=== PATIENT | male | born 1940 | race Caucasian/White ===

== ENCOUNTER 2016-04-14 12:24 | Inpatient (IN) | payer BC, MEDICARE ==
--- NOTE | ~2016-04-14 | HP ---
History And Physical [facility] [address] [place]. [address] NAME: WAQAS HALL : 39 STATUS : ADM IN PAT#: [id number] AGE: 76 ADM/REG DATE : 04/14/16 MR#: [id number] REPORT SERV DATE: 04/14/16 DICTATED BY: SUZAN ALVES DATE: 04/14/16 REPORT STATUS : Draft TRANSCRIBED BY: MODHossein DATE: 04/14/16 DATE OF ADMISSION: 04/14/2016 CHIEF COMPLAINT: Shortness of breath and excessive sleepiness. HISTORY OF PRESENT ILLNESS: This is a 76-year-old male with medical history significant for chronic hypoxic/hypercapnic respiratory failure, obesity hypoventilation syndrome, obstructive sleep apnea, noncompliant with CPAP, morbid obesity, chronic bilateral lower extremity lymphedema, who was brought to the emergency room department of [facility] here at [place] by his with complaints of excessive daytime sleepiness. It was noted that the patient was in his usual state of health, ambulating with the family, shopping, and going out for grocery shopping with family until the day of presentation. When the patient woke up this morning on presentation, was noted to be non-easily arousable. The patient continued to be excessively sleepy, he continued to feel drowsy, and he was noticed to be having some troubles with shortness of breath. It was also noted that the patient has been noncompliant with the CPAP machine in the last few days. The patient's also reported that the patient may have had a low-grade fever at home with some chills, but the temperature was not measured at home. No associated cough. No wheezing. No orthopnea. No PND. No bilateral lower extremity swelling. No history of contact with any person with chronic cough or flu-like symptoms. At the time of my H and P, the patient was extremely solemnic. The above history was provided by his . In the ER, the patient was noted to have a low-grade temperature of 100.8, pH was 7.43, pCO2 was elevated at 49, pO2 at 60. Also noted that in the ER, the patient had a chest x-ray that shows a possible left lower lobe infiltrate concerning for possible pneumonia. The Hospitalist Service was contacted to admit the patient for further management. PAST MEDICAL HISTORY: 1. History of hypoxic/hypercapnic respiratory failure. 2. Obstructive sleep apnea. 3. COPD. 4. Cor pulmonale. 5. Diastolic heart failure with preserved EF. 6. Morbid obesity. 7. Atrial fibrillation. REVIEW OF SYSTEMS: I was unable to obtain review of systems from this patient as he was very drowsy and solemnic throughout my interview. Rest of the history was obtained by chart review and also from his . FAMILY HISTORY: No history of diabetes, hypertension, or CVA in the family. ALLERGIES: NO KNOWN DRUG ALLERGIES. History And Physical [address] [place]. [address] NAME: WAQAS HALL : 39 STATUS : ADM IN [facility]#: [id number] AGE: 76 ADM/REG DATE : 04/14/16 MR#: [id number] REPORT SERV DATE: 04/14/16 DICTATED BY: SUZAN ALVSE DATE: 04/14/16 REPORT STATUS : Draft TRANSCRIBED BY: JAYDEN DATE: 04/14/16 SOCIAL HISTORY: This patient is a former smoker, but currently has quit smoking several years ago. He currently lives with his . He denies drinking alcohol or illicit drug use. PAST SURGICAL HISTORY: 1. Left leg I and D and wound VAC placement. 2. Lip cancer resection. HOME MEDICATIONS: 1. Spiriva inhaler 1 cap at bedtime. 2. Formoterol fumarate inhaler 20 mcg/2 mL one each twice a day. 3. Pulmicort 0.5 one each b.i.d. 4. Warfarin 10 mg tablet p.o. at bedtime. 5. Primidone 50 mg two pills twice a day. 6. Magnesium oxide at bedtime. 7. Diltiazem 60 mg tablet p.o. daily. 8. Potassium chloride 20 mEq p.o. daily. 9. Omeprazole 40 mg p.o. daily. 10.Multivitamins 1 tablet p.o. daily. 11.Torsemide 20 mg two pills p.o. daily. 12.Roflumilast 50 mcg p.o. daily. PHYSICAL EXAMINATION: VITAL SIGNS: Blood pressure 136/75 mmHg, temperature 100.2, pulse 109 beats per minute, respiratory rate 20, and saturating 95% on 4 L of oxygen. GENERAL: Very solemnic but arousable. HEENT: Extraocular muscles intact. Pupils are equal, round, and reactive to both light and accommodation. NECK: Supple. CHEST: Equal expansion bilaterally. No area of tenderness. LUNGS: Bilateral reduced air entry at the lower lung lowe. HEART: S1, S2. Irregularly irregular rhythm. No murmurs. ABDOMEN: Bowel sounds normoactive, obese, and nontender. No palpably enlarged organomegaly. EXTREMITIES: Lower extremities; no lower extremity edema. Area of venous stasis noted. LABORATORY DATA: Chemistry: Procalcitonin 0.19. Sodium 135, potassium 4.3, chloride 94, bicarb 35, BUN 21, creatinine 1.13, GFR 72, glucose 123, calcium 9.0. Hematology: WBC 6.0, hemoglobin 12.1, hematocrit 38.3, platelets 153. BNP 109.2. Chest x-ray, impression: Cardiomegaly, questionable some infiltrate of fluid in the left costophrenic angle. Urinalysis negative. Blood cultures taken. Sputum cultures pending. SUMMARY: This is a 76-year-old male with medical history significant for chronic respiratory failure type 2, obstructive sleep apnea, noncompliant with CPAP, who presented History And Physical [address] [address] NAME: WAQAS HALL : 39 STATUS : ADM IN [facility]#: [id number] AGE: 76 ADM/REG DATE : 04/14/16 MR#: [id number] REPORT SERV DATE: 04/14/16 DICTATED BY: SUZAN ALVES DATE: 04/14/16 REPORT STATUS : Draft TRANSCRIBED BY: JAYDEN DATE: 04/14/16 to the hospital with complaints of excessive solemnness as well as shortness of breath, was found to have a low-grade temperature of 100.2 and an elevated pCO2 concerning for CO2 narcosis secondary to acute on chronic hypercapnic respiratory failure as well as a possible pneumonia. ASSESSMENT AND PLAN: 1. Hypercapnic/hypoxic respiratory failure, acute on chronic, with elevated CO2. The patient's excessive daytime sleepiness likely related to CO2 narcosis. At this point, I will start the patient on BiPAP trial, repeat ABG, and perform neuro checks. 2. Pneumonia. The patient's chest x-ray has some possible infiltrates on the left lower lung field. Also has a fever of 100.2, although white blood cell is within normal limits, Procalcitonin is within normal limits, we will obtain blood cultures and sputum culture. We will start the patient on empiric antibiotics with ceftriaxone and azithromycin at this time and continue to monitor. If the patient's oxygen requirement improves without any further need, then I will be comfortable escalating antibiotics at that time. 3. Obesity hypoventilation syndrome. We will start the patient on BiPAP at this time and continue to monitor. 4. Diastolic heart failure with preserved EF. The patient appears euvolemic at this time. No evidence of volume overload. We will continue the patient's home dose p.o. diuretics as well as home dose cardiac medications. 5. Code status. The patient is full code per 's wishes. 6. The patient will be admitted to the cardiac tele monitoring unit given worsening respiratory status. The patient has been placed on BiPAP. IOO/MODL Suzan Alves MD / [id number] CC: Girish Alejandra D.O.
--- NOTE | ~2016-04-14 | DS ---
Discharge Summary [address] [address] NAME: WAQAS HALL : 39 STATUS : DIS IN PAT#: [id number] AGE: 76 ADM/REG DATE : 04/14/16 MR#: [id number] REPORT SERV DATE: 04/18/16 DICTATED BY: HAMLET HOPSON DATE: 04/17/16 REPORT STATUS : Draft TRANSCRIBED BY: MODL DATE: 04/17/16 ADMISSION DATE: 04/14/2016 DISCHARGE DATE: 04/17/2016 DISCHARGE DIAGNOSES: 1. Community-acquired pneumonia. 2. Acute on chronic hypoxemic and hypercapnic respiratory failure. 3. Acute exacerbation of chronic obstructive pulmonary disease. 4. Clostridium difficile negative diarrhea. 5. Chronic atrial fibrillation. 6. Coumadin anticoagulation. 7. Chronic diastolic heart failure. 8. Obstructive sleep apnea. 9. Suspected obesity hypoventilation syndrome. 10.Obesity. 11.Diabetes. 12.Hypertension. 13.BPH. 14.Lymphedema. 15.Voiding dysfunction. 16.History of iron-deficiency anemia with ferritin this admission of 176. 17.Chronic anemia. 18.Microhematuria, outpatient followup needed. 19.Essential tremor. 20.Euthyroid sick syndrome. OPERATIONS AND PROCEDURES: None. PRESENT ILLNESS: This is a 76-year-old white male who was triaged in the emergency room on 04/14/2016 at 1128 hours with complaints of shortness of breath. In the emergency room, he had a temperature of 102, a pulse of 109, and respirations of 20. After evaluation in the emergency room, he was thought to have a possible left lower lobe infiltrate. He was referred to the hospitalist Service. He was seen by Dr. Suzan Ulloa and admitted as described on admission history and physical examination. ADDITIONAL HISTORY: Per Dr. Ulloa. PHYSICAL EXAMINATION: Per Dr. Ulloa. ADMISSION LABORATORY: Per Dr. Ulloa. HOSPITAL COURSE: He was admitted with assessment of: 1. Hypercapnic and hypoxemic respiratory failure, acute on chronic. 2. Pneumonia. 3. Obesity hypoventilation syndrome. Discharge Summary [address] [address] NAME: WAQAS HALL : 39 STATUS : DIS IN PAT#: [id number] AGE: 76 ADM/REG DATE : 04/14/16 MR#: [id number] REPORT SERV DATE: 04/18/16 DICTATED BY: HAMLET HOPSON DATE: 04/17/16 REPORT STATUS : Draft TRANSCRIBED BY: JAYDEN DATE: 04/17/16 4. Diastolic heart failure with preserved ejection fraction, all in the setting of the above-mentioned comorbidities. On admission, cultures of blood were obtained. He was placed on Rocephin and Zithromax. His home O2 was continued. He was initially placed on BiPAP and transported to admission on . His hospitalist care was assumed by the undersigned on 04/15/2016, and he was seen on 04/16/2016 and 04/17/2016. During the course of this hospitalization, he defervesced and remained afebrile. A procalcitonin level was done on admission, it was 0.19 and was not repeated. However, a C reactive protein level was done on the 04/15/2016 and was 116 with repeat 58.7 on 04/17/2016. His white count on admission was 6.0 and had remained normal. A sputum culture was not obtained on admission, but two blood cultures were which were no growth. During the course of this hospitalization, his cough and dyspnea improved back to what he thought were baseline. He thought that he had a significant urinary diuresis while hospitalized, and in fact, his weight fell approximately 3 kg. He also initially had frequent stools, but this resolved. C. diff testing was negative. On 04/17/2016, it was felt that he had achieved a level of improvement and stability where he could safely be discharged home with outpatient followup to see his physicians; Dr. Garcia, Dr. Baxter, and Dr. Baca next month. He will continue on O2, 4 L/minute by nasal cannula and home CPAP. He will restrict his salt and total fluid intake. DISCHARGE MEDICATIONS: His discharge medications pending outpatient followup with his physicians will be Zithromax 500 mg for two further days, Ceftin 500 mg twice daily for seven days, Cardizem 60 mg at bedtime, Theragran 1 daily, Prilosec 40 mg daily, potassium 20 mEq daily, Mysoline 100 mg twice daily, Daliresp 500 mcg daily, Spiriva HandiHaler 1 cap daily, Demadex 40 mg daily, Coumadin 10 mg at bedtime, Pulmicort Respules 0.5 mg twice daily, Perforomist aerosols 1 twice daily, and magnesium oxide 400 mg at bedtime. DISCHARGE DATA: Sodium 134, potassium 4.2, chloride 92, CO2 of 36, BUN 18, creatinine 0.89, glucose 105, and calcium 8.9. CBC: White count 4.3, hemoglobin 12.1, and platelets 151,000. INR 2.4. Discharge time greater than 30 minutes. Discharge Summary [address] [address] NAME: WAQAS HALL : 39 STATUS : DIS IN PAT#: [id number] AGE: 76 ADM/REG DATE : 04/14/16 MR#: [id number] REPORT SERV DATE: 04/18/16 DICTATED BY: HAMLET HOPSON DATE: 04/17/16 REPORT STATUS : Draft TRANSCRIBED BY: JAYDEN DATE: 04/17/16 DD/JAYDEN Hamlet Hopson M.D. / [id number] CC: Girish Alejandra DONALD W. James A Lovette, M.D. Iwayemi O. Olayeye, MD Suresh Enjeti, M.D.
[2016-04-14 12:12] LABS: BASOPHILS 0 %; EOSINOPHILS 0 %; ER CBC TAT 0 Hrs 07 Mins; IMMATURE GRANULOCYTES 0.3 %; IMMATURE GRANULOCYTES ABSOLUTE 0.02 10/3/uL (0.0-0.11); LYMPHOCYTES 10.6 %; LYMPHOCYTES ABSOLUTE 0.63 10/3/uL (0.67-4.30); MEAN CORPUS HGB CONC 31.6 g/dL (32.0-36.0); MEAN PLATELET VOLUME 11.9 fL (9.2-13.0); MONOCYTES 10.8 %; MONOCYTES ABSOLUTE 0.64 10/3/uL (0.21-1.20); NEUTROPHILS 78.3 %; NEUTROPHILS ABSOLUTE 4.66 10/3/uL (2.02-8.40); RED CELL COUNT 4.24 10/6/uL (4.7-6.1)
[2016-04-14 12:14] LABS: HEMATOCRIT 38.3 % (40.0-51.0); HEMOGLOBIN 12.1 g/dL (13.6-17.8); MANUAL DIFF NO %; MEAN CORPUSCULAR HEMOGLOB 28.5 pg (26.0-34.0); MEAN CORPUSCULAR VOLUME 90.3 fL (80-100); PLATELET COUNT 153 10/3/uL (150-400); RBC DISTRIBUTION WIDTH 14.8 % (12.0-16.0)
[2016-04-14 12:17] LABS: ALLENS TEST Pos; CARBOXYHEMOGLOBIN 1.3 % (0-3); DEVICE NC; HCO3 (ACTUAL BICARBONATE) 31.4 MEQ/L (23-27); HEMOBLOGIN CONTENT 12.8 G/DL (14-18); INSTRUMENT SERIAL # 8087; METHEMOGLOBIN 0.2 % (0-3); O2 CONTENT 16.2 VOL% (18-24); PCO2 (CO2 TENSION) 49 MMHG (35-45); PO2 (O2 TENSION) 60 MMHG (79-93); SAMPLE Arterial; pH 7.43 (7.37-7.43)
[~2016-04-14 12:24] MED LIST: 8 HOUR650 MG PO; ALBUTEROL5 INH; ASAB PO; ATACAND HCT1 TA1 PO; ATEN25 PO; ATEN50 PO; AUG875 PO; BARRIER CREAM TOP; BIST PO; BROVANA15 MCG INH; BUM2 PO; BYSTOLIC5 MG PO; C1 PO; C2 PO; C25 PO; C5 PO; CARD60 PO; CARDIZEM LA120 MG PO; CARDU2 PO; CARDURA1 MG PO; COUMADIN; COUMADIN10 MG PO; COUMADIN3 MG PO; COUMADIN4 MG PO; COUMADIN6 MG PO; COZAAR100 MG PO; DALIRESP500 MCG PO; DEMA20 PO; DSS PO; DURICEF PO; FLECAINIDE100 MG PO; FLECAINIDE50 MG PO; GLUCAGON IM; GLUCPH PO; HUMI PO; K-TABS10 MEQ PO; KDUR20 PO; KLOR-CON M2020 MEQ PO; MAGNESIUM CITRATE PO; MAGOX4 PO; METHOC750B PO; MIRALAXPKT PO; MOISTURE TOP; MULTIVIT/MIN PO; NITROSTAT0.4 MG SL; NORCO1 TA1 PO; NOVOLOG SC; NYSTATPOW TOP; OCEAN NAS; P10 PO; PERFOROM INH; PRILO PO; PRILOSEC40 MG PO; PRIM50B PO; PROAIR HFA INH; PROSCAR5 PO; PROVENTSOL INH; PROVHFA INH; PULRESP.5 INH; REFRESH OP; REFRESH OPH; SPIRIVA INH; SYMBICORT; SYMBICORT 160/41 INH INH; T PO; TAMBO50 PO; TAMBOCOR PO; TEARS NATURA OPH; TUMSROLL PO
[2016-04-14 12:28] LABS: BUN (BLOOD UREA NITROGEN) 21 MG/DL (6-23); CHLORIDE, SERUM 94 MMOL/L (96-112); CO2 (CARBON DIOXIDE) 35 MMOL/L (24-34); CREATININE 1.13 MG/DL (0.70-1.30); GFR AFRICAN AMERICAN 72 ML/MIN (>=60); GFR NON AFRICAN AMERICAN 62 ML/MIN (>=60); GLUCOSE, SERUM 123 MG/DL (60-99); POTASSIUM, SERUM 4.1 MMOL/L (3.5-5.3); SODIUM, SERUM 135 MMOL/L (135-148)
[2016-04-14 12:42] LABS: INFLUENZA A SCREEN NEGATIVE (NEGATIVE); INFLUENZA B SCREEN NEGATIVE (NEGATIVE)
[2016-04-14 13:24] LABS: PROCALCITONIN 0.19 ng/mL (<0.5)
[2016-04-14 13:38] LABS: ASCORBIC ACID (UR NOT ORDER) 40 (NEG); BILIRUBIN, URINE NEGATIVE (NEG); ER URINALYSIS TAT 0 Hrs 13 Mins; KETONE, URINE NEGATIVE (NEG); LEUKOCYTE ESTERASE(NOT OR NEG (NEG); NITRITE (URINE) NEG (NEG); WBC (NOT ORDERED) (RFLEX) 2 (0-5)
[2016-04-14] MEDS ORDERED: PERFOROM INH (14:38)
[2016-04-14] MEDS ORDERED: PULRESP.5 INH (14:38)
[2016-04-14] MEDS ORDERED: SPIRIVA INH (14:38)
[2016-04-14] MEDS ORDERED: PRIM50B PO (14:39)
[2016-04-14] MEDS ORDERED: MAGOX4 PO (14:39)
[2016-04-14] MEDS ORDERED: THERGRANM PO (14:41)
[2016-04-14] MEDS ORDERED: KLOR-CON M2020 MEQ PO (14:41)
[2016-04-14] MEDS ORDERED: CARD60 PO (14:41)
[2016-04-14] MEDS ORDERED: PRILOSEC40 MG PO (14:41)
[2016-04-14] MEDS ORDERED: DALIRESP500 MCG PO (14:42)
[2016-04-14] MEDS ORDERED: DEMA20 PO (14:42)
[2016-04-14 18:50] LABS: INTERNATIONAL NORMAL RATI 2.2 UNITS (-); PROTIME (NOT ORD) 24.2 SEC (12.0-14.5)
[2016-04-14 19:00] LABS: FREE T4 0.9 NG/DL (0.76-1.46)
[2016-04-14 19:04] LABS: ULTRASENSITIVE TSH 0.233 MCIU/ML (0.358-3.740)
[2016-04-15 04:49] LABS: BASOPHILS 0.1 %; BASOPHILS ABSOLUTE 0.01 10/3/uL (0.0-0.16); EOSINOPHILS 0 %; HEMATOCRIT 37.1 % (40.0-51.0); HEMOGLOBIN 11.7 g/dL (13.6-17.8); IMMATURE GRANULOCYTES 0.1 %; IMMATURE GRANULOCYTES ABSOLUTE 0.01 10/3/uL (0.0-0.11); LYMPHOCYTES 21.5 %; LYMPHOCYTES ABSOLUTE 1.46 10/3/uL (0.67-4.30); MEAN CORPUS HGB CONC 31.5 g/dL (32.0-36.0); MEAN CORPUSCULAR HEMOGLOB 28.7 pg (26.0-34.0); MEAN CORPUSCULAR VOLUME 90.9 fL (80-100); MEAN PLATELET VOLUME 11.8 fL (9.2-13.0); MONOCYTES ABSOLUTE 1.29 10/3/uL (0.21-1.20); NEUTROPHILS 59.3 %; NEUTROPHILS ABSOLUTE 4.01 10/3/uL (2.02-8.40); PLATELET COUNT 144 10/3/uL (150-400); RBC DISTRIBUTION WIDTH 14.9 % (12.0-16.0); RED CELL COUNT 4.08 10/6/uL (4.7-6.1); WHITE BLOOD CELLS 6.8 10/3/uL (4.5-10.5)
[2016-04-15 04:56] LABS: MANUAL DIFF NO %
[2016-04-15 05:02] LABS: ALBUMIN 2.8 G/DL (3.5-5.0); BUN (BLOOD UREA NITROGEN) 22 MG/DL (6-23); CALCIUM, SERUM 8.3 MG/DL (8.5-10.4); CHLORIDE, SERUM 94 MMOL/L (96-112); CO2 (CARBON DIOXIDE) 32 MMOL/L (24-34); CREATININE 1.05 MG/DL (0.70-1.30); GFR AFRICAN AMERICAN 79 ML/MIN (>=60); GFR NON AFRICAN AMERICAN 68 ML/MIN (>=60); GLUCOSE, SERUM 95 MG/DL (60-99); PHOSPHORUS, SERUM 3.2 MG/DL (2.5-4.5); POTASSIUM, SERUM 3.7 MMOL/L (3.5-5.3); SODIUM, SERUM 136 MMOL/L (135-148)
[2016-04-15 15:37] LABS: ALKALINE PHOSPHATASE 85 U/L (45-117); DIRECT BILIRUBIN < 0.1 MG/DL (0.0-0.4); FERRITIN 176 NG/ML (26-388); INDIRECT BILIRUBIN(NOT ORDER) 0.4 MG/DL (0.1-0.9); SGOT(AST) 21 U/L (5-40); SGPT(ALT) 24 U/L (5-65); TOTAL BILIRUBIN 0.5 MG/DL (0-1.2)
[2016-04-16 04:39] LABS: BASOPHILS 0.2 %; BASOPHILS ABSOLUTE 0.01 10/3/uL (0.0-0.16); EOSINOPHILS 0.6 %; EOSINOPHILS ABSOLUTE 0.03 10/3/uL (0.0-0.53); HEMATOCRIT 37.9 % (40.0-51.0); HEMOGLOBIN 11.8 g/dL (13.6-17.8); IMMATURE GRANULOCYTES 0.2 %; IMMATURE GRANULOCYTES ABSOLUTE 0.01 10/3/uL (0.0-0.11); LYMPHOCYTES 28.7 %; LYMPHOCYTES ABSOLUTE 1.36 10/3/uL (0.67-4.30); MANUAL DIFF NO %; MEAN CORPUS HGB CONC 31.1 g/dL (32.0-36.0); MEAN CORPUSCULAR HEMOGLOB 27.6 pg (26.0-34.0); MEAN CORPUSCULAR VOLUME 88.8 fL (80-100); MEAN PLATELET VOLUME 12.3 fL (9.2-13.0); MONOCYTES 10.3 %; MONOCYTES ABSOLUTE 0.49 10/3/uL (0.21-1.20); NEUTROPHILS ABSOLUTE 2.84 10/3/uL (2.02-8.40); PLATELET COUNT 164 10/3/uL (150-400); RBC DISTRIBUTION WIDTH 14.8 % (12.0-16.0); RED CELL COUNT 4.27 10/6/uL (4.7-6.1); WHITE BLOOD CELLS 4.7 10/3/uL (4.5-10.5)
[2016-04-16 04:43] LABS: INTERNATIONAL NORMAL RATI 2.4 UNITS (-); PROTIME (NOT ORD) 26.1 SEC (12.0-14.5)
[2016-04-16 04:56] LABS: BUN (BLOOD UREA NITROGEN) 22 MG/DL (6-23); CHLORIDE, SERUM 93 MMOL/L (96-112); CO2 (CARBON DIOXIDE) 37 MMOL/L (24-34); CREATININE 0.99 MG/DL (0.70-1.30); GFR AFRICAN AMERICAN 85 ML/MIN (>=60); GFR NON AFRICAN AMERICAN 73 ML/MIN (>=60); GLUCOSE, SERUM 96 MG/DL (60-99); SODIUM, SERUM 137 MMOL/L (135-148)
[2016-04-17 04:17] LABS: INTERNATIONAL NORMAL RATI 2.4 UNITS (-)
[2016-04-17 04:21] LABS: BASOPHILS 0.2 %; BASOPHILS ABSOLUTE 0.01 10/3/uL (0.0-0.16); EOSINOPHILS 0 %; HEMATOCRIT 38.2 % (40.0-51.0); HEMOGLOBIN 12.1 g/dL (13.6-17.8); IMMATURE GRANULOCYTES 0.2 %; IMMATURE GRANULOCYTES ABSOLUTE 0.01 10/3/uL (0.0-0.11); LYMPHOCYTES 21.2 %; MEAN CORPUS HGB CONC 31.7 g/dL (32.0-36.0); MEAN CORPUSCULAR HEMOGLOB 28.5 pg (26.0-34.0); MEAN CORPUSCULAR VOLUME 90.1 fL (80-100); MONOCYTES 10.8 %; MONOCYTES ABSOLUTE 0.46 10/3/uL (0.21-1.20); NEUTROPHILS 67.6 %; NEUTROPHILS ABSOLUTE 2.87 10/3/uL (2.02-8.40); PLATELET COUNT 151 10/3/uL (150-400); RBC DISTRIBUTION WIDTH 14.5 % (12.0-16.0); RED CELL COUNT 4.24 10/6/uL (4.7-6.1); WHITE BLOOD CELLS 4.3 10/3/uL (4.5-10.5)
[2016-04-17 04:22] LABS: MANUAL DIFF NO %
[2016-04-17 04:41] LABS: C-REACTIVE PROTEIN 58.7 MG/L (<8.0); CALCIUM, SERUM 8.9 MG/DL (8.5-10.4); CHLORIDE, SERUM 92 MMOL/L (96-112); CO2 (CARBON DIOXIDE) 36 MMOL/L (24-34); CREATININE 0.89 MG/DL (0.70-1.30); GFR AFRICAN AMERICAN 96 ML/MIN (>=60); GFR NON AFRICAN AMERICAN 82 ML/MIN (>=60); GLUCOSE, SERUM 105 MG/DL (60-99); POTASSIUM, SERUM 4.2 MMOL/L (3.5-5.3); SODIUM, SERUM 134 MMOL/L (135-148)
[2016-04-17 04:43] LABS: BUN (BLOOD UREA NITROGEN) 18 MG/DL (6-23)
[2016-04-17] MEDS ORDERED: ZITHROMAX500 MG PO (13:35)
[2016-04-17] MEDS ORDERED: CEFT5 PO (13:36)
[2016-09-16] MEDS ORDERED: PERFOROM INH (12:54)
[2016-09-16] MEDS ORDERED: PROAIR HFA INH (12:55)
[2016-09-16] MEDS ORDERED: MYRAC50 MG PO (12:58)
[2016-09-16] MEDS ORDERED: MIRALAX POWDER1 PKT PO (13:20)
[2016-09-17] MEDS ORDERED: MAGOX4 PO (03:25)
[2016-09-17] MEDS ORDERED: BACTROINT TOP (03:25)
[2016-09-17] MEDS ORDERED: CARD60 PO (03:26)
[2016-09-17] MEDS ORDERED: MULTIVIT/MIN PO (03:26)
[2016-09-17] MEDS ORDERED: DEMA20 PO (03:26)
[2016-09-17] MEDS ORDERED: KDUR20 PO (03:26)
[2016-09-17] MEDS ORDERED: DALIRESP500 MCG PO (03:27)
[2016-09-17] MEDS ORDERED: PRIM50B PO ×2 (03:27)
[2016-09-17] MEDS ORDERED: PRILOSEC40 MG PO (03:28)
[2016-09-17] MEDS ORDERED: PERFOROM INH (03:28)
[2016-09-17] MEDS ORDERED: PROAIR HFA INH (03:30)
[2016-09-17] MEDS ORDERED: PULRESP.5 INH (03:30)
[2016-09-17] MEDS ORDERED: SPIRIVA INH (03:30)
[2016-09-17] MEDS ORDERED: MINOCIN50 PO (03:36)
[2016-09-17] MEDS ORDERED: METRONIDAZOLE 0.75% TOP (03:36)
[2016-09-20] MEDS ORDERED: AUG875 PO (16:21)
[2016-09-20] MEDS ORDERED: CARDCD180 PO (16:22)
[2016-09-20] MEDS ORDERED: MAGOX4 PO (16:34)
[2016-09-22] MEDS ORDERED: COUMADIN10 MG PO ×3 (13:24→13:26)
[2016-09-22] MEDS ORDERED: JANTOVEN10 MG PO (13:25)
[2016-09-22] MEDS ORDERED: COUMADIN6 MG PO (13:26)
== END 2016-04-17 14:55 | disposition home or self-care (01) | DRG 189 ==
LOC: ER 12:24 → 6NO 15:51
PROVIDERS: Emergency Medicine; Hospitalist; Internal Medicine
PROC: 5A09357 Assistance with Respiratory Ventilation, Less than 24 Consecutive Hours, Continuous Positive Airway Pressure (ICD-10-PCS; principal; 2016-04-14)
DX: J96.21 Acute and chronic respiratory failure with hypoxia (principal); J18.9 Pneumonia, unspecified organism; E87.2 Acidosis; I50.32 Chronic diastolic (congestive) heart failure; E11.9 Type 2 diabetes mellitus without complications; J44.0 Chronic obstructive pulmonary disease with (acute) lower respiratory infection; I48.2 Chronic atrial fibrillation; I27.81 Cor pulmonale (chronic); E66.2 Morbid (severe) obesity with alveolar hypoventilation; D50.9 Iron deficiency anemia, unspecified; I10 Essential (primary) hypertension; J44.1 Chronic obstructive pulmonary disease with (acute) exacerbation; R31.29 Other microscopic hematuria; J96.22 Acute and chronic respiratory failure with hypercapnia; R19.7 Diarrhea, unspecified; G47.33 Obstructive sleep apnea (adult) (pediatric); I89.0 Lymphedema, not elsewhere classified; N40.1 Benign prostatic hyperplasia with lower urinary tract symptoms; G25.0 Essential tremor; E07.81 Sick-euthyroid syndrome; Z68.34 Body mass index [BMI] 34.0-34.9, adult; Z79.01 Long term (current) use of anticoagulants; Z87.891 Personal history of nicotine dependence
CPT/HCPCS: 36600; 71010; 80048; 80069; 80076; 81001; 82140; 82728; 82805; 83605; 83735; 83880; 84100; 84145; 84439; 84443; 85025; 85610; 86140; 87040; 87493; 87493-59; 87804; 93005; 94640; 94660; 97161-GP; 99285; A9270-GY; G8978-CK-GP; G8979-CJ-GP; J0456